=== PATIENT | female | born 2000 | race Caucasian/White ===

== ENCOUNTER 2022-09-24 19:29 | Emergency (ER) | payer OTHER, SELFPAY ==
--- NOTE | ~2022-09-24 | CT_ITS ---
EXAMINATION: CT brain wo con DATE: 09/24/2022 23:23 INDICATION: Left-sided headache. Dizziness. Diplopia. TECHNIQUE: Computed tomography (CT) of the head was performed without intravenous contrast. The mA wa s adjusted according to patient size. Iterative reconstruction technique was employed. The dose-lengt h product was 605.33 mGy-cm. COMPARISON: None FINDINGS: There is no intracranial hemorrhage, acute infarction, or abnormal intracranial mass lesion . The ventricles are normal in size. The paranasal sinuses are clear. The mastoid air cells are naresh l. IMPRESSION: 1. Normal brain. Reviewed, dictated and finalized at location D. IMPRESSION: 1. Normal brain.
[2022-09-24 20:46] VITALS: BP 127/81; PULSE 115; RESP 18; TEMP 36.8; O2SAT 99
--- NOTE | 2022-09-24 22:25 | ED.HA ---
HPI - Headache General Chief Complaint: Headache Stated Complaint: Blurry vision for week, MENARD Time Seen by Provider: 09/24/22 21:53 History of Present Illness HPI Narrative: Patient is a 21-year-old they/them with her girlfriend over concerns about right-sided headache and blurry vision. Patient states that they have experienced this headache over the past 2 weeks. They state that the headache is intermittent in nature, described as a pulsatile throbbing sensation present behind the right eye. They states that when the pain is there it is occasionally associated with some blurry vision. They never experienced a headache like this in the past. They have not attempted any medicine for their symptoms. Reporting some lightheadedness, dizziness and disorientation when the headache is there. Family history of migraines. No history of head trauma, nausea, vomiting, fevers, chills or neck stiffness. Review of Systems Review of Systems: All systems reviewed & are unremarkable except as noted in HPI and below Exam Narrative: APPEARANCE: Well appearing, no pain in distress, well-nourished. Head: Normocephalic and atraumatic. EYES: Fatigable horizontal nystagmus. PERRLA/EOMI, conjunctivae clear NOSE: No nasal drainage EARS: External ear normal in appearance THROAT: Oropharynx is clear. Mucous membranes are moist. NECK: Supple. No adenopathy, no masses. RESPIRATORY: Airway patent, respirations nonlabored. Clear to auscultation bilaterally, no rales, rhonchi, wheezing. CARDIOVASCULAR: Regular rate and rhythm without murmurs, rubs, or gallops. ABDOMINAL: Normoactive bowel sounds. Soft, nontender, nondistended. No rebound tenderness or guarding. MUSCULOSKELETAL: Extremities are warm and well-perfused. Moves all extremities well. No edema. NEURO: Cranial nerves II through XII intact. [id number] normal. Normal speech. No focal neurologic deficits. SKIN: Skin is warm and dry. No rashes. PSYCHIATRIC: Normal affect/mood. Course Vital Signs Vital signs: Vital Signs Temperature 98.2 F 09/24/22 20:46 Pulse Rate 115 H 09/24/22 20:46 Respiratory Rate 18 09/24/22 20:46 Blood Pressure 127/81 09/24/22 20:46 Pulse Oximetry 99 09/24/22 20:46 Oxygen Delivery Room Air 09/24/22 20:46 Temperature 98.2 F 09/24/22 20:46 Pulse Rate 112 H 09/25/22 00:37 Respiratory Rate 16 09/25/22 00:37 Blood Pressure 112/68 09/25/22 00:37 Pulse Oximetry 100 09/25/22 00:37 Oxygen Delivery Room Air 09/24/22 20:46 MDM - Headache MDM Narrative Medical decision making narrative: 21-year-old they/them here for evaluation of right-sided migraine and some visual changes over the past several weeks. Patient does have a positive family history of migraine headaches. They are nontoxic in appearance, not currently complaining of a headache, has no neurologic deficits on exam. Likely migraine with aura but head CT was ordered to rule out other causes which was negative. Basic labs are unremarkable. Patient declines any pain medicine in the ED. They were referred to neurology for further work-up and management, explained to patient that they will likely need a MRI. No indication to keep in the hospital and patient is agreeable with plan for outpatient work-up. Lab Data 09/24/22 22:33 09/24/22 22:33 Labs: Lab Results 09/24/22 09/24/22 Range/Units 22:33 22:33 WBC 8.2 (4.5-10.0) K/mm3 RBC 5.01 (4.2-5.4) M/mm3 Hgb 12.8 (12.0-15.0) g/dL Hct 40.4 (37.0-47.0) % MCV 80.6 (80-100) fl MCH 25.5 L (26-34) pg MCHC 31.7 L (32-36) g/dl RDW 15.1 H (11.5-14.5) % Plt Count 243 (150-375) k/mm3 MPV 10.1 (7.4-10.4) fl Immature Gran % (Auto) 0.2 (0-0.5) % Neut % (Auto) 65.0 (45.5-73.1) % Lymph % (Auto) 22.3 (18.3-44.2) % [place] % (Auto) 8.7 H (2.6-8.5) % Eos % (Auto) 2.8 (0-4.4) % Baso % (Auto) 1.0 (0.2-1.2) % Lymph # (Auto) 1.83 (0.9-3.2) K/mm3 [place] #
[2022-09-24 22:36] VITALS: BP 116/76; PULSE 100; RESP 16; O2SAT 100
[2022-09-24 22:39] LABS: Basophils Absolute Auto 0.1 K/mm3 (0.0-0.1); Eosinophils Absolute Auto 0.2 K/mm3 (0-0.3); Eosinophils Percent Auto 2.8 % (0-4.4); Hematocrit 40.4 % (37.0-47.0); Hemoglobin 12.8 g/dL (12.0-15.0); Immature Granulocyte Absolute 0.02 K/mm3 (0.00-0.031); Immature Granulocyte Percent A 0.2 % (0-0.5); Lymphocytes Absolute Auto 1.83 K/mm3 (0.9-3.2); Lymphocytes Percent Auto 22.3 % (18.3-44.2); Mean Corpuscular HGB Conc 31.7 g/dl (32-36); Mean Corpuscular Hemoglobin 25.5 pg (26-34); Mean Corpuscular Volume 80.6 fl (80-100); Mean Platelet Volume 10.1 fl (7.4-10.4); Monocytes Absolute Auto 0.7 K/mm3 (0.1-0.6); Monocytes Percent Auto 8.7 % (2.6-8.5); Neutrophils Absolute Auto 5.3 K/mm3 (1.3-6.7); Platelet Count Result 243 k/mm3 (150-375); Red Blood Count 5.01 M/mm3 (4.2-5.4); Red Cell Distribution Width 15.1 % (11.5-14.5); White Blood Count 8.2 K/mm3 (4.5-10.0)
[2022-09-24 23:03] LABS: Alanine Aminotransferase 16 U/L (6-35); Albumin Level 4.4 g/dL (3.5-5.1); Alkaline Phosphatase 75 U/L (38-126); Anion Gap 9 mmol/L (8-16); Aspartate Amino Transferase 26 U/L (14-36); Bilirubin,Total 0.4 mg/dL (0.2-1.3); Blood Urea Nitrogen 17 mg/dL (7-17); Calcium 8.6 mg/dL (8.4-10.2); Carbon Dioxide 24 mmol/L (22-30); Chloride 106 mmol/L (98-107); Estimated CRCL calculation 124 ml/min; Estimated Glomerular Filt Rate > 60; Glucose 102 mg/dL (65-110); Potassium 4.2 mmol/L (3.4-5.0); Sodium 139 mmol/L (137-145)
[2022-09-24 23:55] VITALS: BP 116/90; PULSE 90; RESP 16; O2SAT 100
[2022-09-25 00:37] VITALS: BP 112/68; PULSE 112; RESP 16; O2SAT 100
== END 2022-09-25 00:39 | disposition home or self-care (01) ==
PROVIDERS: Emergency Provider Physician Assistant; PCP Family Medicine
DX: G43.909 Migraine, unspecified, not intractable, without status migrainosus (principal)
CPT/HCPCS: 36415; 70450; 80053; 85025; 99284

== ENCOUNTER 2022-12-09 15:37 | Emergency (ER) | payer OTHER, SELFPAY ==
--- NOTE | ~2022-12-09 | XR_ITS ---
EXAMINATION: XR chest 2V 12/09/2022 17:12 INDICATION: Chest pain PROCEDURE: 2 view chest COMPARISON: No prior studies for comparison. FINDINGS: The lungs are clear. The cardiomediastinal silhouette is within normal limits. There are no pleural effusions. There is no pneumothorax suspected. IMPRESSION: 1: NO ACUTE CARDIOPULMONARY DISEASE. Reviewed, dictated and finalized at location A.
[2022-12-09 15:42] VITALS: BP 130/93; PULSE 98; RESP 18; TEMP 36.6; O2SAT 100
--- NOTE | 2022-12-09 16:24 | ECG_ITS ---
Measurements Intervals [place] Rate: 78 P: 128 HI: 147 QRS: -19 QRSD: 89 T: -32 QT: 367 QTc: 419 Interpretive Statements SINUS RHYTHM LOW QRS VOLTAGE IN EXTREMITY LEADS [QRS DEFLECTION < 0.5 mV IN LIMB LEADS] POOR R-WAVE PROGRESSION NONSPECIFIC T-WAVE ABNORMALITY ABNORMAL ECG NO PREVIOUS ECG AVAILABLE FOR COMPARISON Electronically Signed On 12-10-2022 9:09:36 CDT by Naveen Ya M.D.
[2022-12-09 17:02] LABS: Basophils Absolute Auto 0.1 K/mm3 (0.0-0.1); Basophils Percent Auto 0.8 % (0.2-1.2); Eosinophils Absolute Auto 0.1 K/mm3 (0-0.3); Eosinophils Percent Auto 1.6 % (0-4.4); Hematocrit 39.6 % (37.0-47.0); Hemoglobin 12.7 g/dL (12.0-15.0); Immature Granulocyte Absolute 0.03 K/mm3 (0.00-0.031); Immature Granulocyte Percent A 0.4 % (0-0.5); Lymphocytes Absolute Auto 1.92 K/mm3 (0.9-3.2); Lymphocytes Percent Auto 23.1 % (18.3-44.2); Mean Corpuscular HGB Conc 32.1 g/dl (32-36); Mean Corpuscular Hemoglobin 25.7 pg (26-34); Mean Corpuscular Volume 80.2 fl (80-100); Mean Platelet Volume 10.2 fl (7.4-10.4); Monocytes Absolute Auto 0.7 K/mm3 (0.1-0.6); Monocytes Percent Auto 8.2 % (2.6-8.5); Neutrophils Absolute Auto 5.5 K/mm3 (1.3-6.7); Neutrophils Percent Auto 65.9 % (45.5-73.1); Platelet Count Result 276 k/mm3 (150-375); Red Blood Count 4.94 M/mm3 (4.2-5.4); Red Cell Distribution Width 14.2 % (11.5-14.5); White Blood Count 8.3 K/mm3 (4.5-10.0)
[2022-12-09 17:12] LABS: INR 1.2; Prothrombin Time 15.7 Seconds (11.1-14.7)
[2022-12-09 17:13] LABS: Partial Thromboplastin Time 35.2 SECONDS (22.3-36.8)
[2022-12-09 17:15] LABS: Alanine Aminotransferase 16 U/L (6-35); Albumin Level 4.7 g/dL (3.5-5.1); Alkaline Phosphatase 71 U/L (38-126); Anion Gap 5 mmol/L (8-16); Aspartate Amino Transferase 25 U/L (14-36); Bilirubin,Total 0.3 mg/dL (0.2-1.3); Blood Urea Nitrogen 14 mg/dL (7-17); Calcium 8.7 mg/dL (8.4-10.2); Carbon Dioxide 29 mmol/L (22-30); Chloride 103 mmol/L (98-107); D Dimer < 0.27 ug/mL (<0.48); Estimated CRCL calculation 101 ml/min; Estimated Glomerular Filt Rate > 60; Glucose 74 mg/dL (65-110); Lipase 77 U/L (23-300); Potassium 3.6 mmol/L (3.4-5.0); Sodium 137 mmol/L (137-145)
[2022-12-09 17:26] LABS: Troponin I < 0.012 ng/mL (0.000-0.034)
--- NOTE | 2022-12-09 17:44 | ED.GENADULT ---
HPI - General Adult General Chief complaint: Unspecified Stated complaint: chest pain Time Seen by Provider: 12/09/22 16:10 Source: patient and RN notes reviewed Mode of arrival: ambulatory Limitations: no limitations History of Present Illness HPI narrative: This is a 21 year old with history of anxiety who presents for evaluation of chest pain. Patient reports for past 1-2 weeks she has been having midsternal chest pain and back pain with breath. She thinks she may have shortness of breath. She denies fever, cough, nausea, vomiting, diarrhea. SHe reports symptoms starting with heart burn and she thinks it is due to medication changes. They ran out of their Effexor 1 month ago and she started taking prozac in its place. She last took prozac 2 days ago. Related Data Allergies Allergy/AdvReac Type Severity Reaction Status Date / Time No Known Allergies Allergy Verified 12/09/22 15:37 Review of Systems Constitutional: Constitutional: Denies weakness Cardiovascular: Cardiovascular: Reports chest pain, Denies syncope, Denies rapid heart rate, Denies irregular heart rhythm, Denies leg edema and Reports dyspnea Respiratory: Respiratory: Denies chest congestion, Denies hemoptysis, Denies excessive phlegm production and Denies dyspnea Gastrointestinal: Gastrointestinal: Denies abdominal pain, Denies hematochezia, Denies diarrhea and Denies vomiting Genitourinary: Genitourinary: Denies hematuria and Denies dysuria Musculoskeletal: Musculoskeletal: Reports back pain, Denies joint swelling, Denies loss of height and Denies muscle weakness Neurologic: Denies syncope, Denies focal weakness and Denies weakness PMFSH Past Medical History Medical History (Updated 12/09/22 @ 21:57 by Melba Segura MD) Anxiety Surgical History Surgical History (Updated 12/09/22 @ 21:57 by Melba Segura MD) No pertinent past surgical history Social History Social History (Updated 12/09/22 @ 21:57 by Melba Segura MD) Smoking status: Never smoker Alcohol intake: never Exam Narrative: GENERAL: Well-appearing, well-nourished, and in no acute distress. HEAD: Normocephalic, atraumatic EYES: PERRLA and EOMI, conjunctiva clear without discharge THROAT:Mucous membranes moist, Oropharynx normal without erythema, exudate, peritonsillar swelling or fluctuance NECK: Supple, without lymphadenopathy or mass RESPIRATORY: No respiratory distress, Airway patent, Respirations non-labored, Clear to auscultation without rales, rhonchi or wheeze HEART: Regular rate and rhythm. No murmur heard. Normal peripheral pulses. ABDOMEN: Soft, nontender, nondistended, normal active bowel sounds. No masses. No rebound or guarding, No organomegaly. EXTREMITIES: No edema, normal strength with full range of motion. SKIN: Warm, dry, normal color without rash NEURO: Alert and oriented x3. CN 2-12 grossly intact. No focal deficits. PSYCH: Normal mood and affect. Course Reevaluation(s) Reevaluation #1: Patient is comfortable in her bed. She is no acute distress. I discussed that labs and imaging are unremarkable. She will be discharge home on PPI. Date: 12/09/22 Time: 18:59 Vital Signs Vital signs: Vital Signs Temperature 97.8 F 12/09/22 15:42 Pulse Rate 98 12/09/22 15:42 Respiratory Rate 18 12/09/22 15:42 Blood Pressure 130/93 H 12/09/22 15:42 Pulse Oximetry 100 12/09/22 15:42 Oxygen Delivery Room Air 12/09/22 15:42 Temperature 97.8 F 12/09/22 15:42 Pulse Rate 98 12/09/22 15:42 Respiratory Rate 18 12/09/22 15:42 Blood Pressure 130/93 H 12/09/22 15:42 Pulse Oximetry 100 12/09/22 15:42 Oxygen Delivery Room Air 12/09/22 15:42 Medical Decision Making Differential Diagnosis Differential Diagnosis: GERD, PE, pneumonia, PUD, pancreatitis, back pain, costochondritis Vital Signs Vital Signs: Vital Signs Temperature 97.8 F 12/09/22 15:42 Pulse Rate 98 12/09/22 15:42 Respirator
[2022-12-09] MEDS: KETOROLAC 15 MG/ML VIAL (*BKC) IV PUSH (17:47)
== END 2022-12-09 19:46 | disposition home or self-care (01) ==
PROVIDERS: Emergency Provider General Practice; PCP Family Medicine
DX: R07.89 Other chest pain (principal); F41.9 Anxiety disorder, unspecified; R94.31 Abnormal electrocardiogram [ECG] [EKG]
CPT/HCPCS: 36415; 71046; 80053; 83690; 84484; 85025; 85380; 85610; 85730; 93005; 96374; 99284; J1885

== ENCOUNTER 2023-04-19 23:51 | Emergency (ER) | payer OTHER, SELFPAY ==
[2023-04-19 23:54] VITALS: BP 118/77; PULSE 82; RESP 18; TEMP 36.8; O2SAT 98
--- NOTE | 2023-04-20 01:46 | ED.WOUNDLAC ---
HPI - Wound/Laceration General Chief Complaint: Wound/Laceration Stated Complaint: wound Time Seen by Provider: 04/20/23 00:39 History of Present Illness HPI narrative: 22-year-old female reports to the emergency department for evaluation of a bleeding mole to her left groin. Patient states her and her friend were concerned that the mole was cancerous, therefore her friend tried to cut it off with a pair of scissors a couple hours prior to arrival. Since then, the area has been mildly oozing blood which prompted that to come to the ED. Last tetanus unknown. She is not anticoagulated. No other complaints. Related Data Allergies Allergy/AdvReac Type Severity Reaction Status Date / Time No Known Allergies Allergy Verified 12/09/22 15:37 Review of Systems Review of Systems: CONSTITUTIONAL: Denies fever, chills EYES: Denies visual changes, redness, or discharge. ENT: Denies rhinorrhea, congestion, sore throat, or otalgia. CARDIOVASCULAR: Denies chest pain, palpitations, or edema. RESPIRATORY: Denies cough or dyspnea. GASTROINTESTINAL: Denies abdominal pain, nausea, vomiting, or diarrhea. GENITOURINARY: Denies dysuria or hematuria. SKIN: See HPI MUSCULOSKELETAL: Denies back pain, joint pain, or myalgia. NEUROLOGIC: Denies headache, numbness, dizziness, or weakness. PSYCHIATRIC: Denies anxiety or depression. [facility] Past Medical History Medical History Anxiety Surgical History Surgical History No pertinent past surgical history Social History Social History Smoking status: Never smoker Alcohol intake: never Exam Narrative: GENERAL: Well-appearing, in no acute distress. HEAD: Normocephalic NECK: Supple. CHEST: No respiratory distress. Clear to auscultation, no adventitious breath sounds. HEART: Regular rate and rhythm. No murmur heard. Normal peripheral pulses. EXTREMITIES: Normal range of motion. No edema. SKIN: 1 mm raised mole to the left groin with a small avulsion, mildly oozing blood. No surrounding erythema, induration or fluctuation. NEURO: No focal deficits. Alert and oriented x3. PSYCH: Normal mood and affect. Course Vital Signs Vital signs: Vital Signs Temperature 98.2 F 04/19/23 23:54 Pulse Rate 82 04/19/23 23:54 Respiratory Rate 18 04/19/23 23:54 Blood Pressure 118/77 04/19/23 23:54 Pulse Oximetry 98 04/19/23 23:54 Oxygen Delivery Room Air 04/19/23 23:54 Temperature 98.2 F 04/19/23 23:54 Pulse Rate 82 04/19/23 23:54 Respiratory Rate 18 04/19/23 23:54 Blood Pressure 118/77 04/19/23 23:54 Pulse Oximetry 98 04/19/23 23:54 Oxygen Delivery Room Air 04/19/23 23:54 MDM - Wound/Laceration MDM Narrative Medical decision making narrative: 22-year-old female reports for evaluation for a bleeding mole after her friend cut off the top of it prior to arrival. See HPI for further history. Vitals are stable and she is well-appearing on exam. Exam significant for mildly oozing mole. Patient requesting cauterization. Silver nitrate applied with successful hemostasis. Band-Aid applied. Tetanus updated. Encourage patient to follow-up with PCP. Strict ED return precautions discussed. She is agreeable to plan verbalized understanding. Discharged in stable condition. Discharge Plan Discharge Clinical Impression: Avulsion of skin Patient Disposition: Home, Self-Care Condition: Stable Instructions: Antibiotic Form, Skin Avulsion (ED) Additional Instructions: You were evaluated emergency department for a bleeding mole. Please do not cut any more moles or parts of your body. Please return to the emergency department if you develop signs or symptoms of infection including spreading redness, puslike drainage, fever or other concerning symptoms. Please follow-up wit
[2023-04-20] MEDS: SILVER NITRATE (*SP) STICK 1 EACH TOPICAL (01:51)
[2023-04-20] MEDS: TETANUS,DIPHTHERIA,AC PERTUSSIS ADULT (0.5 ML) BOOSTRIX IM (01:56)
[2023-04-20 02:02] VITALS: BP 128/74; PULSE 78; RESP 14; O2SAT 99
== END 2023-04-20 02:03 | disposition home or self-care (01) ==
LOC: ANHED 04-20 01:54
PROVIDERS: Emergency Provider Physician Assistant; PCP Family Medicine
DX: D22.5 Melanocytic nevi of trunk (principal); Z23 Encounter for immunization
CPT/HCPCS: 12001; 90471; 90715; 99282